=== PATIENT | female | born 1995 | race Caucasian/White ===

== ENCOUNTER 2017-05-19 15:08 | Outpatient (CLI) | payer OTHER ==
[~2017-05-19] VITALS: Ht 152.4 cm; Wt 80.0 kg
[~2017-05-19 15:08] MED LIST: CEFTIN 250250 MG/TAB PO; MACROBID 1100 MG/CAP PO; NORCO 325 MG-51 TAB PO; PRILOSEC 20MG20 MG PO; YASMIN 3 MG-0.01 TAB PO
[2017-05-19 15:10] VITALS: BP 126/64; PULSE 101; TEMP 98.1
[2017-05-19] MEDS ORDERED: PRENATAL (15:17)
[2017-05-19 15:38] VITALS: TEMP 98.1
[2017-05-29] MEDS ORDERED: IBU800 M1 PO (10:19)
[2017-05-29] MEDS ORDERED: PERCOCET 325 MG1 TA2 PO (10:20)
== END 2017-05-19 15:45 | disposition home or self-care (01) ==
LOC: LDRO 15:08
DX: Z34.03 Encounter for supervision of normal first pregnancy, third trimester (principal); Z3A.37 37 weeks gestation of pregnancy